=== PATIENT | female | born 1985 | race Hispanic/Latino ===

== ENCOUNTER 2019-01-05 05:15 | Inpatient (IN) | payer OTHER ==
[2019-01-05] MEDS ORDERED: LACTATED RINGERS 2,000 ML ONE (06:01)
[2019-01-05] MEDS ORDERED: BICITRA PO ONE (06:15)
[2019-01-05] MEDS ORDERED: PEPCID IV ONE ×2 (06:15→08:58)
[2019-01-05] MEDS ORDERED: REGLAN IV ONE (06:15)
[2019-01-05] MEDS ORDERED: LACTATED RINGERS 1,000 ML IV SCH (07:00)
[2019-01-05] MEDS ORDERED: PITOCin/NS 20 UNIT/1000ML DRIP 20 UNITS/1,000 ML BAG IV SCH ×2 (07:00→13:00)
[2019-01-05] MEDS ORDERED: ANCEF/STERILE WATER 2 GM/20 ML 2 GM/20 ML SYRINGE IV NR (07:00)
[2019-01-05 07:26] LABS: Basophils % (Auto) 0.3 % (0.0-1.8); Eosinophils # (Auto) 0.1 K/mm3 (0.0-0.4); Eosinophils % (Auto) 0.8 % (0.0-4.3); Hematocrit 41.7 % (30.3-42.9); Lymphocytes # (Auto) 2.5 K/mm3 (1.2-5.4); Lymphocytes % (Auto) 25.6 % (13.4-35.0); Mean Corpuscular HGB Conc 34 % (30-34); Mean Corpuscular Volume 87 fl (79-97); Monocytes # (Auto) 0.9 K/mm3 (0.0-0.8); Monocytes % (Auto) 9.3 % (0.0-7.3); Platelet Count 214 K/mm3 (140-440); Red Blood Count 4.78 M/mm3 (3.65-5.03); Red Cell Distribution Width 14.6 % (13.2-15.2)
[2019-01-05] MEDS ORDERED: REGLAN ONE (08:58)
[2019-01-05] MEDS ORDERED: BICITRA ONE (08:58)
--- NOTE | 2019-01-05 09:12 | History and Physical Report ---
History of Present Illness Date of examination: 01/05/19 Date of admission: 01/05/19 05:15 Chief complaint: Repeat C Section History of present illness: Pt is a 33yo WF EDC 01/08/19; EGA 39 4/7 weeks presents for a Repeat C Section. She received care at [facility] since 9 weeks and co-managed by [facility] for Obesity and LGA . She also had a cerclage which was removed 12/14/18. records are available and GBS is unknown. Past History Past Medical History: other (Obesity) Past Surgical History: section Family/Genetic History: none Social history: no significant social history, - Obstetrical History Expected Date of Delivery: 01/08/19 Actual Gestation: 39 Week(s) 4 Day(s) Medications and Allergies Allergies Allergy/AdvReac Type Severity Reaction Status Date / Time shellfish derived Allergy Swelling Verified 12/01/13 10:46 Home Medications Medication Instructions Recorded Confirmed Last Taken Type Cyclobenzaprine [Flexeril] 10 mg PO TID PRN #15 tablet 12/01/13 Unknown Rx traMADol [Ultram] 50 mg PO Q4HR PRN #15 tablet 12/01/13 Unknown Rx Active Meds: Active Medications Lactated Ringer's (Lactated Ringers) 1,000 mls @ 2,250 mls/hr IV PREOP BASIA Stop: 01/06/19 07:27 Last Admin: 01/05/19 06:30 Dose: 2,250 mls/hr Documented by: Oxytocin/Sodium Chloride (Pitocin/Ns 20 Unit/1000ml Drip) 20 units in 1,000 mls @ 0 mls/hr IV TITR BASIA Review of Systems All systems: negative - Vital Signs Vital signs: Vital Signs Temp Pulse Resp BP 98.3 F 105 H 18 123/77 01/05/19 08:49 01/05/19 08:49 01/05/19 08:49 01/05/19 08:49 Temp Pulse Resp BP Pulse Ox 98.3 F 105 H 18 123/77 01/05/19 08:49 01/05/19 08:51 01/05/19 08:49 01/05/19 08:51 - Physical Exam Breasts: Positive: deferred Cardiovascular: Regular rate Lungs: Positive: Clear to auscultation Abdomen: Positive: normal appearance Genitourinary (Female): Positive: normal external genitalia Vagina: Positive: normal moisture Uterus: Positive: enlarged Extremities: Positive: normal - Obstetrical FHR: category 1 Uterine Contraction Monitor Mode: External Uterine Contraction Pattern: Absent Results Result Diagrams: 01/05/19 06:15 Abnormal lab results 01/05/19 Range/Units 06:15 [place] % (Auto) 9.3 H (0.0-7.3) % [place] # 0.9 H (0.0-0.8) K/mm3 All other labs normal. Assessment and Plan - Patient Problems (1) 39 weeks gestation of Onset Date: 01/05/19 Current Visit: Yes Status: Acute Plan to address problem: A: IUP @ 39 4/7 weeks Previous C Section Morbid Obesity P: Admit for a Repeat C Section (2) Previous section Onset Date: 01/05/19 Current Visit: Yes Status: Acute (3) Morbid obesity with BMI of 40.0-44.9, adult Onset Date: 01/05/19 Current Visit: Yes Status: Acute
[2019-01-05] MEDS ORDERED: SUBLIMAZE ONE (09:35)
[2019-01-05] MEDS ORDERED: NEO SYNEPHRINE ONE (10:00)
[2019-01-05] MEDS ORDERED: ANCEF/STERILE WATER 2 GM/20 ML IV ONE (10:00)
[2019-01-05] MEDS ORDERED: NACL 0.9% IR ONE (10:25)
[2019-01-05] MEDS ORDERED: WATER FOR IRRIG STERILE IR ONE (10:25)
[2019-01-05] MEDS ORDERED: MILK OF MAGNESIA PO PRN (10:48)
[2019-01-05] MEDS ORDERED: TORADOL IV PRN (10:48)
[2019-01-05] MEDS ORDERED: ZOFRAN IV PRN ×2 (10:48→12:11)
[2019-01-05] MEDS ORDERED: SENOKOT PO PRN (10:48)
[2019-01-05] MEDS ORDERED: TUCKS PAD TP PRN (10:48)
[2019-01-05] MEDS ORDERED: LANSINOH TP PRN (10:48)
[2019-01-05] MEDS ORDERED: NARCAN 0.4 MG/1 ML IV PRN ×2 (10:48→12:11)
[2019-01-05] MEDS ORDERED: MYLICON PO PRN (10:48)
[2019-01-05] MEDS ORDERED: TYLENOL PO PRN (10:48)
[2019-01-05] MEDS ORDERED: SODIUM CHLORIDE FLUSH SYRINGE 10 ML IV SCH (11:00)
--- NOTE | 2019-01-05 11:14 | Operative Report ---
Operative Report Operative Report: Date of procedure: 01/05/2019 Pre-operative diagnosis: 1. Intrauterine at 39-4/7 weeks 2. Previo us 3. Morbid obesity Post-operative diagnosis: Same Procedure name(s): Repeat low transverse section Surgeon: Jason Howard MD Cpas: None Anesthesia: Spinal anesthesia by Dr. Alex EBL: 800 mL's Findings: A 4119 g female Apgars 9 at 1 minute 9 at 5 minutes. 1+ meconium fluid. Normal uterus. Normal tubes and ovaries bilaterally. Procedure: After the patient was prepped and draped in usual sterile fashion, and after satisfactory level of epidural anesthesia was obtained, the skin knife was used to make a transverse skin incision through the previous skin scar. The incision was excised down to layer of the fascia, which was nicked in the midline and extended laterally using the Bovie cautery. The rectus muscles were dissected off the rectus fascia both superiorly and inferiorly. The rectus bellies in the midline, and the peritoneum was entered under direct visualization. The peritoneal incision was extended superiorly and inferiorly. A bladder flap was created and the bladder blade was then placed. The uterus was scored in a curvilinear linear fashion, entered in the midline revealing 1+ meconium amniotic fluid. The infant's head was delivered onto the surgical field with the aid of a vacuum, and the oropharynx and nasopharynx were bulb suctioned. The rest of the 's body was delivered, cord was doubly clamped and cut and the infant was handed to the waiting respiratory team. Cord blood was then obtained. The placenta was manually removed from the uterus, and the uterus removed from its normal anatomical position. After gentle uterine lavage, the incision was inspected and found to be without extensions. It was then closed in 2 layers using 0 Vicryl suture in a running interlocking fashion, the second layer imbricating the first. After good hemostasis was achieved, copious amounts or irrigation was performed, and the gutters were suctioned free of blood and blood clots. The Tisseel sealant was sprayed across the uterine incision. The uterus was then returned to its normal anatomical position, and after excellent hemostasis assured, the peritoneum was re-approximated using 3-0 Vicryl suture in a running interlocking fashion, and then the rectus muscles were re-approximated using 3-0 Vicryl suture in a [id number] configuration. The fascia was then re-approximated using 0 Vicryl suture in running interlocking fashion. The subcutaneous layer was made hemostatic using Bovie cautery, the Tisseel sealant was sprayed across the fascial incision and the skin edges re-approximated using 4-0 Vicryl suture in a sub-cuticular fashion. Patient tolerated the procedure well was transported to recovery in stable condition.
[2019-01-05] MEDS ORDERED: NACL 0.9% 100 ML ONE (11:16)
[2019-01-05] MEDS ORDERED: NACL 0.9% 1000 ML 1,000 ML ONE (11:17)
[2019-01-05] MEDS ORDERED: D5LR 1,000 ML IV SCH (12:00)
[2019-01-05] MEDS ORDERED: PHENERGAN PO PRN (12:11)
[2019-01-05] MEDS ORDERED: DILAUDID IV PRN ×2 (12:11)
[2019-01-05] MEDS ORDERED: PHENERGAN PR PRN (12:11)
--- NOTE | 2019-01-05 12:18 | Anesthesia Day of Surgery ---
Anesthesia Day of Surgery - Day of Surgery Patient Examined: Yes Patient H&P Reviewed: Yes Patient is NPO: Yes Beta Blockers: No Cardiac Clearance: No Pulmonary Clearance: No Benjamin's Test: N/A
--- NOTE | 2019-01-05 12:18 | Anesthesia Consultation ---
Anesthesia Consult and Med Hx Date of service: 01/05/19 - Airway Anesthetic Teeth Evaluation: Good ROM Head & Neck: Adequate Mental/Hyoid Distance: Adequate Mallampati Class: Class II Intubation Access Assessment: Probably Good - Pulmonary Exam CTA: Yes - Cardiac Exam Cardiac Exam: RRR - Pre-Operative Health Status ASA Pre-Surgery Classification: ASA2, ASA3 Proposed Anesthetic Plan: Spinal - Pulmonary Hx Smoking: No Hx Asthma: No Hx Respiratory Symptoms: No SOB: No COPD: No Home Oxygen Therapy: No Hx Pneumonia: No Hx Sleep Apnea: No - Cardiovascular System Hx Hypertension: No Hx Coronary Artery Disease: No Hx Heart Attack/AMI: No Hx Angina: No Hx Percutaneous Transluminal Coronary Angioplasty (PTCA): No Hx Cardia Arrhythmia: No Hx Pacemaker: No Hx Internal Defibrillator: No Hx Valvular Heart Disease: No Hx Heart Murmur: No - Central Nervous System Hx Neuromuscular Disorder: No Hx Seizures: No CVA: No Hx Back Pain: No Hx Psychiatric Problems: No - Gastrointestinal Hx Ulcer: No Hx Gastroesophageal Reflux Disease: Yes - Endocrine Hx Renal Disease: No Hx End Stage Renal Disease: No Hx Cirrhosis: No Hx Liver Disease: No Hx Insulin Dependent Diabetes: No Hx Non-Insulin Dependent Diabetes: No Hx Thyroid Disease: No Hx Hypothyroidism: No Hx Hyperthyroidism: No - Hematic Hx Anemia: No Hx Sickle Cell Disease: No - Other Systems Hx Alcohol Use: No Hx Substance Use: No Hx Cancer: No Hx Obesity: Yes
--- NOTE | 2019-01-05 12:19 | Post Anesthesia Evaluation ---
- Post Anesthesia Evaluation Patient Participated: Yes Airway Patent: Yes Stable Respiratory Function: Yes Nausea/Vomiting: No Temp > 96.8F: Yes Pain Manageable: Yes Adequeate Hydration: Yes Anesthesia Complications: No Block Receding Appropriately: Yes Patient on Ventilator: No
[2019-01-05] MEDS ORDERED: SODIUM CHLORIDE FLUSH SYRINGE 10 ML IV NR (13:00)
[2019-01-05] MEDS: ANCEF/NS 1 GM/50 ML 1 GM/50 ML BAG IV SCH (17:59)
[2019-01-05] MEDS: PERCOCET 5/325 PO PRN (21:01)
[2019-01-05 22:49] LABS: Hematocrit 34.4 % (30.3-42.9); Hemoglobin 11.7 gm/dl (10.1-14.3)
[2019-01-06] MEDS: PERCOCET 5/325 PO PRN (02:28)
[2019-01-06] MEDS: ANCEF/NS 1 GM/50 ML 1 GM/50 ML BAG IV SCH (02:36)
[2019-01-06] MEDS ORDERED: BOOSTRIX IM ONE (06:00)
[2019-01-06] MEDS: IBUPROFEN PO PRN ×3 (06:30→23:45)
--- NOTE | 2019-01-06 08:23 | Progress Note ---
Assessment and Plan - Patient Problems (1) 39 weeks gestation of Onset Date: 01/05/19 Current Visit: Yes Status: Resolved (2) Previous section Onset Date: 01/05/19 Current Visit: Yes Status: Chronic (3) Morbid obesity with BMI of 40.0-44.9, adult Onset Date: 01/05/19 Current Visit: Yes Status: Chronic (4) Status post Onset Date: 01/06/19 Current Visit: Yes Status: Resolved Plan to address problem: A: S/P Repeat C Section - POD #1 Doing well Acute blood loss anemia - stable P: Continue RPOC Anticipate discharge in 24-48hrs (5) Acute blood loss anemia Onset Date: 01/06/19 Current Visit: Yes Status: Resolved Subjective - Subjective Date of service: 01/06/19 Principal diagnosis: s/p Repeat C Section - POD #1 Interval history: Pt is feeling well without complaints. She is tolerating a reg diet without nausea or vomiting, ambulating and voiding without difficulty. Patient reports: appetite normal, voiding normally, pain well controlled, flatus, ambulating normally, no dizzy ambulation, no nauseated : doing well, nursing well, bottle feeding Objective - Vital Signs Latest vital signs: Vital Signs Temp Pulse Resp BP BP Pulse Ox 01/06/19 06:30 20 01/06/19 04:54 98.7 F 102 H 18 118/67 97 01/06/19 02:28 20 01/05/19 23:57 99.1 F 101 H 18 121/74 95 01/05/19 20:00 98.7 F 81 18 129/69 01/05/19 16:10 97.9 F 98 H 18 94/64 01/05/19 11:45 98.9 F 79 25 H 106/63 96 01/05/19 11:30 70 24 113/57 97 01/05/19 11:25 78 22 110/61 97 01/05/19 11:20 79 27 H 105/70 98 01/05/19 11:15 64 25 H 112/55 97 01/05/19 11:10 98 H 26 H 112/69 99 01/05/19 11:05 90 27 H 134/74 100 01/05/19 10:59 97.0 F L 80 22 127/61 95 01/05/19 08:51 105 H 123/77 01/05/19 08:49 98.3 F 105 H 18 123/77 Intake and Output 01/05/19 01/06/19 01/06/19 22:59 06:59 14:59 Intake Total 910 Output Total 700 1250 Balance 210 -1250 Intake: IV 50 ANCEF/NS 1 GM/50 ML 1 gm 50 In 50 ml @ 100 mls/hr IV Q8H [facility] Rx#:[id number] Oral 560 Intake, Free Water 300 Output: Urine 700 1250 Indwelling Catheter 700 900 Void 350 Other: Total, Intake Amount 320 Total, Output Amount 700 350 - Exam Breasts: Present: deferred Abdomen: Present: normal appearance, soft Uterus: Present: normal, firm, fundal height below umbilicus Extremities: Present: normal Incision: Present: normal, dry, intact - Labs Labs: Laboratory Tests 01/05/19 01/05/19 01/05/19 06:15 06:15 06:15 WBC 9.6 RBC 4.78 Hgb 14.0 Hct 41.7 MCV 87 MCH 29 MCHC 34 RDW 14.6 Plt Count 214 Lymph % (Auto) 25.6 [place] % (Auto) 9.3 H Eos % (Auto) 0.8 Baso % (Auto) 0.3 Lymph # 2.5 [place] # 0.9 H Eos # 0.1 Baso # 0.0 Seg Neutrophils % 64.0 Seg Neutrophils # 6.1 RPR Nonreactive Blood Type O POSITIVE Antibody Screen Negative 01/05/19 22:32 WBC RBC Hgb 11.7 Hct 34.4 D MCV MCH MCHC RDW Plt Count Lymph % (Auto) [place] % (Auto) Eos % (Auto) Baso % (Auto) Lymph # [place] # Eos # Baso # Seg Neutrophils % Seg Neutrophils # RPR Blood Type Antibody Screen
[2019-01-06] MEDS ORDERED: M-M-R II VACCINE SUB-Q ONE (10:52)
[2019-01-06] MEDS: NORCO 5/325 PO PRN ×2 (13:01→23:44)
[2019-01-06] MEDS: PRENATAL VITAMIN PO SCH (13:08)
[2019-01-06] MEDS: FEOSOL PO SCH (13:08)
--- NOTE | 2019-01-07 09:04 | Progress Note ---
Assessment and Plan - Patient Problems (1) 39 weeks gestation of Onset Date: 01/05/19 Current Visit: Yes Status: Resolved (2) Previous section Onset Date: 01/05/19 Current Visit: Yes Status: Chronic (3) Morbid obesity with BMI of 40.0-44.9, adult Onset Date: 01/05/19 Current Visit: Yes Status: Chronic (4) Status post Onset Date: 01/06/19 Current Visit: Yes Status: Resolved Plan to address problem: A: S/P Repeat C Section - POD #2 Doing well Acute blood loss anemia - stable P: May go home today. (5) Acute blood loss anemia Onset Date: 01/06/19 Current Visit: Yes Status: Resolved Subjective - Subjective Date of service: 01/07/19 Principal diagnosis: s/p Repeat C Section - POD #2 Interval history: Pt is feeling well without complaints. She is tolerating a reg diet without nausea or vomiting, ambulating and voiding without difficulty. Patient reports: appetite normal, voiding normally, pain well controlled, flatus, ambulating normally, no dizzy ambulation, no nauseated [place]: doing well, nursing well Objective - Vital Signs Latest vital signs: Vital Signs Temp Pulse Resp BP BP Pulse Ox 01/07/19 00:57 99.0 F 83 18 97/45 96 01/06/19 23:45 24 01/06/19 23:44 24 01/06/19 16:40 98.5 F 94 H 20 111/69 96 Intake and Output 01/06/19 01/07/19 01/07/19 22:59 06:59 14:59 Intake Total 720 360 Balance 720 360 Intake: Oral 600 Intake, Free Water 120 360 Other: Total, Intake Amount 240 # Voids Void 1 1 - Exam Breasts: Present: deferred Abdomen: Present: normal appearance, soft Uterus: Present: normal, firm, fundal height below umbilicus Extremities: Present: normal Incision: Present: normal, dry, intact
--- NOTE | 2019-01-07 09:06 | Discharge Summary ---
Providers - Providers Date of Admission: 01/05/19 05:15 Date of discharge: 01/07/19 Attending physician: AXEL ARIAS Primary care physician: AXEL ARIAS Hospitalization Reason for admission: section, IUP at term Delivery: Procedure: section, repeat low transverse Episiotomy: none Laceration: none Incision: normal, dry, intact Other procedures: none complications: none Discharge diagnosis: IUP at term delivered [place] baby: female Hospital course: Pt is a 33yo WF EDC 01/08/19; EGA 39 4/ weeks who presented for a Repeat C Section. She received care at [facility] since 9 weeks and co-managed by [facility] for Obesity and LGA infant. She underwent an uncomplicated Repeat C Section and tolerated the procedure well. By POD #2 she was tolerating a reg diet without nausea or vomiting, ambulating and voiding without difficulty. She was therefore discharged to home on POD #2 in stable condition. Condition at discharge: Good Disposition: DC-01 TO HOME OR SELFCARE - Discharge Diagnoses (1) 39 weeks gestation of Status: Resolved (2) Previous section Status: Chronic (3) Morbid obesity with BMI of 40.0-44.9, adult Status: Chronic (4) Status post Status: Resolved (5) Acute blood loss anemia Status: Resolved Plan - Discharge Medications Prescriptions: Ferrous Sulfate [Feosol 325 MG tab] 325 mg PO BID #60 tablet Ibuprofen [Motrin] 800 mg PO Q8HR PRN #30 tablet PRN Reason: Pain, Mild (1-3) HYDROcodone/APAP 5-325 [[place] 5/325] 1 each PO Q6HR PRN #30 tablet PRN Reason: Pain Pnv No.95/Ferrous Fum/Folic AC [Prenavite Tablet] 1 each PO DAILY #30 tablet - Provider Discharge Summary Activity: routine, no sex for 6 weeks, no heavy lifting 4 weeks, no strenuous exercise Diet: routine Instructions: routine Additional instructions: [] Smoking cessation referral if applicable(refer to patient education folder for contact #) [] Refer to [facility] Booklet Call your doctor immediately for: * Fever > 100.5 * Heavy vaginal bleeding ( >1 pad per hour) * Severe persistent headache * Shortness of breath * Reddened, hot, painful area to leg or breast * Drainage or odor from incision. * Keep incision clean and dry at all times and follow doctor's instructions regarding bathing/showering - Follow up plan Follow up: AXEL ARIAS MD [Primary Care Provider] - 14 Days
[2019-01-07] MEDS: FEOSOL PO SCH (09:22)
[2019-01-07] MEDS: NORCO 5/325 PO PRN (09:22)
[2019-01-07] MEDS: PRENATAL VITAMIN PO SCH (09:22)
[2019-01-07] MEDS: IBUPROFEN PO PRN (09:23)
[2019-01-07 16:30] VITALS: BP 125/76
== END 2019-01-07 16:00 | disposition home or self-care (01) | DRG 787 ==
LOC: APU 05:15 → OB 12:18
PROVIDERS: ADMIT Obstetrics & Gynecology; ATTEND Obstetrics & Gynecology
PROC: 10D00Z1 Extraction of Products of Conception, Low, Open Approach (ICD-10-PCS; principal; 2019-01-05)
DX: O34.211 Maternal care for low transverse scar from previous cesarean delivery (principal); D62 Acute posthemorrhagic anemia; O99.214 Obesity complicating childbirth; O77.0 Labor and delivery complicated by meconium in amniotic fluid; O99.62 Diseases of the digestive system complicating childbirth; O90.81 Anemia of the puerperium; E66.01 Morbid (severe) obesity due to excess calories; K21.9 Gastro-esophageal reflux disease without esophagitis; Z3A.39 39 weeks gestation of pregnancy; Z37.0 Single live birth
CPT/HCPCS: 36415; 59025; 85014; 85018; 85025; 86592; 86850; 86900; 86901; 96360; 96361; G0378; A6250; C9250; J0690; J1170; J2370; J2590; J2765; J3010; J7030; J7120; J7121